=== PATIENT | male | born 1965 | race Two or more races ===

== ENCOUNTER 2024-04-07 20:12 | Emergency (ER) | payer OTHER ==
[~2024-04-07] VITALS: Ht 172.7 cm; Wt 81.8 kg
[2024-04-07 20:57] VITALS: TEMP 98.3
[2024-04-07] MEDS: MAG HYDROX/ALUMINUM HYD/SIMETH 30 ML SUSPENSION UDCUP PO ONE (22:35)
[2024-04-07] MEDS: CarBAMazepine 200 MG TABLET PO ONE (23:33)
[2024-04-07] MEDS: FAMOTIDINE 20 MG TABLET PO ONE (23:33)
[2024-04-08] VITALS: BP 143/100; PULSE 89; RESP 16; O2SAT 100
== END 2024-04-08 00:50 ==
LOC: EMS 20:12
DX: K21.9 Gastro-esophageal reflux disease without esophagitis (principal); F17.210 Nicotine dependence, cigarettes, uncomplicated
CPT/HCPCS: 93005; 99284; Z7502; Z7610